=== PATIENT | female | born 2000 | race Two or more races ===

== ENCOUNTER 2020-01-02 16:39 | Inpatient (IN) | payer MEDICAID ==
[~2020-01-02] VITALS: Ht 154.9 cm; Wt 75.4 kg
[2020-01-02 17:14] LABS: BASOPHILS % (AUTO) 0.5 % (0.0-2.0); EOSINOPHILS % (AUTO) 0.3 % (1.0-6.0); HEMATOCRIT 39.4 % (36-46); HEMOGLOBIN 13.4 g/dL (12.0-16.0); LYMPHOCYTES # (AUTO) 2.1 K/uL (1.0-4.8); MEAN CORPUSCULAR HEMOGLOBIN 30.5 pg (26.0-34.0); MEAN CORPUSCULAR VOLUME 90 fL (80-100); MONOCYTES # (AUTO) 0.5 K/uL (0.1-1.0); MONOCYTES % (AUTO) 4.5 % (2.0-9.0); NEUTROPHILS # (AUTO) 8.8 K/uL (1.8-7.7); NEUTROPHILS % (AUTO) 76.7 % (40.0-70.0); PLATELET COUNT (AUTO) 426 K/uL (150-450); RED BLOOD CELL COUNT(AUTO) 4.39 MIL/uL (4.00-5.20); RED CELL DISTRIBUTION WIDTH 12.6 % (11.5-14.5)
[2020-01-02 17:20] LABS: ANION GAP 10 mmol/L (8-16); CALCIUM, TOTAL 9.5 mg/dL (8.8-10.5); CARBON DIOXIDE 27 mmol/L (22-29); CHLORIDE 101 mmol/L (98-107); CREATININE 0.92 mg/dL (0.60-1.30); GLOMERULAR FILTR. RATE CALC > 60 mL/min (>60); GLUCOSE,RANDOM 93 mg/dL (70-110); POTASSIUM 3.9 mmol/L (3.5-5.1); SODIUM SERUM 138 mmol/L (136-145); UREA NITROGEN, BLOOD 11 mg/dL (7-18)
[2020-01-02] MEDS ORDERED: HALO100V4 IM (17:23)
[2020-01-02 17:32] LABS: ALANINE AMINOTRANSFERASE 27 U/L (12-78); ALBUMIN 4.4 g/dL (3.4-5.0); ALKALINE PHOSPHATASE 65 U/L (46-116); ASPARTATE AMINOTRANSFERASE 10 U/L (15-37); BILIRUBIN,TOTAL 0.4 mg/dL (0.1-1.0); HCG,QUANTITATIVE < 1 mIU/mL (0-6); TOTAL PROTEIN, SERUM 8.5 g/dL (6.4-8.2)
[2020-01-02 18:30] LABS: AMPHET/METH SCREEN,URINE NEGATIVE (NEGATIVE); BARBITURATE SCREEN, URINE NEGATIVE (NEGATIVE); BENZODIAZEPINES SCREEN,URINE NEGATIVE (NEGATIVE); CANNABINOID SCREEN,URINE NEGATIVE (NEGATIVE); COCAINE SCREEN,URINE NEGATIVE (NEGATIVE); METHADONE SCREEN, URINE NEGATIVE (NEGATIVE); OPIATE SCREEN,URINE NEGATIVE (NEGATIVE); PHENCYCLIDINE SCREEN,URINE NEGATIVE (NEGATIVE)
[2020-01-02] MEDS ORDERED: LORazepam 2 MG TABLET PO ONE (19:15)
[2020-01-02] MEDS: ZOLPIDEM TARTRATE 10 MG TABLET PO PRN (21:27)
[2020-01-02 21:43] VITALS: BP 116/72
[2020-01-03 06:24] LABS: CHOL/HDL RATIO 3.4 (3.9-5.7)
[2020-01-03] MEDS ORDERED: MAGNESIUM HYDROXIDE SUSPENSION 30 ML UDCUP PO PRN (09:00)
[2020-01-03] MEDS ORDERED: PETROLATUM,WHITE 28 GM JELLY TP PRN (09:00)
[2020-01-03] MEDS ORDERED: DOCUSATE SODIUM 100 MG CAPSULE PO PRN (09:00)
[2020-01-03] MEDS ORDERED: IBUPROFEN 400 MG TABLET PO PRN (09:00)
[2020-01-03] MEDS ORDERED: MAG HYDROX/AL HYDROX/SIMETH ES 30 ML SUSPENSION UDCUP PO PRN (09:00)
[2020-01-03] MEDS ORDERED: GuaiFENesin/D-METHORPHAN [SUGAR-FREE] 200-20MG/10 ML SYRUP UDCUP PO PRN (09:00)
[2020-01-03] MEDS ORDERED: ACETAMINOPHEN 325 MG TABLET PO PRN (09:00)
[2020-01-03] MEDS ORDERED: ALBUTEROL SULFATE HFA 90 MCG/PUFF 8 GM INHALER IH PRN (09:00)
[2020-01-03] MEDS ORDERED: LOPERAMIDE HCL 2 MG CAPSULE PO PRN (09:00)
[2020-01-03] MEDS ORDERED: NICOTINE 14 MG/24 HOUR PATCH TD PRN (09:00)
[2020-01-03] MEDS ORDERED: CloNIDine HCL 0.1 MG TABLET PO PRN (09:00)
[2020-01-03] MEDS ORDERED: ONDANSETRON HCL 4 MG TABLET PO PRN (09:00)
[2020-01-03 09:57] VITALS: BP 116/75
[2020-01-03] MEDS ORDERED: MIRT-89 PO (10:53)
[2020-01-03] MEDS ORDERED: HALO50VI4 IM (11:23)
[2020-01-03] MEDS: BuPROPion HCL XL 150 MG ER TABLET PO SCH (11:30)
[2020-01-03] MEDS: HALOPERIDOL 5 MG TABLET PO PRN (14:17)
[2020-01-03] MEDS: LORazepam 2 MG TABLET PO PRN (14:18)
[2020-01-03 16:00] VITALS: BP 103/65
[2020-01-03] MEDS: ZOLPIDEM TARTRATE 10 MG TABLET PO PRN (20:18)
[2020-01-03] MEDS: MIRTAZAPINE 15 MG TABLET PO SCH (20:45)
[2020-01-04 08:00] VITALS: BP 99/59
[2020-01-04] MEDS: BuPROPion HCL XL 150 MG ER TABLET PO SCH (09:52)
[2020-01-04] MEDS: HALOPERIDOL 5 MG TABLET PO PRN (14:49)
[2020-01-04] MEDS: LORazepam 2 MG TABLET PO PRN (14:49)
[2020-01-04 16:19] VITALS: BP 108/71
[2020-01-04] MEDS: MIRTAZAPINE 15 MG TABLET PO SCH (20:32)
[2020-01-04] MEDS: ZOLPIDEM TARTRATE 10 MG TABLET PO PRN (21:02)
[2020-01-05 08:44] VITALS: BP 116/80
[2020-01-05] MEDS: BuPROPion HCL XL 150 MG ER TABLET PO SCH (10:17)
[2020-01-05] MEDS ORDERED: BUPR-93 PO (12:24)
== END 2020-01-05 14:36 | disposition home or self-care (01) | DRG 885 ==
LOC: EMS 16:42 → 3EI 20:32
PROVIDERS: ADMIT Psychiatry & Neurology Psychiatry; ATTEND Psychiatry & Neurology Psychiatry
DX: F25.1 Schizoaffective disorder, depressive type (principal); R45.851 Suicidal ideations; D72.829 Elevated white blood cell count, unspecified; F41.9 Anxiety disorder, unspecified
CPT/HCPCS: G0480